=== PATIENT | male | born 1975 | race Caucasian/White ===

== ENCOUNTER 2018-05-23 09:30 | Outpatient (CLI) | payer MEDICAID, SELFPAY ==
--- NOTE | 2018-05-23 09:23 | DI.RAD_ITS ---
SYMPTOM/DIAGNOSIS: PAIN LEFT KNEE: There are severe degenerative changes of the medial femoral tibial joint as well as patellofemoral joint There is prominent spurring throughout. The lateral femoral tibial joint space is well maintained. 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
== END 2018-05-23 09:50 ==
PROVIDERS: PCP Nurse Practitioner Family; Visit Provider Physician Assistant Surgical
DX: M25.562 Pain in left knee (principal); M17.12 Unilateral primary osteoarthritis, left knee
CPT/HCPCS: 73560

== ENCOUNTER 2018-06-08 02:00 | Outpatient (CLI) | payer MEDICAID, SELFPAY ==
[2018-06-08 09:37] LABS: COMMENT (LAB VIEW ONLY) 115.21 mg/dL; Microalb ug/mg Crea 5.6 ug/mg Cr
[2018-06-08 09:39] LABS: ALT 39 U/L (12-78); AST 31 U/L (15-37); Albumin 3.6 g/dL (3.4-5.0); Alkaline Phosphatase 61 U/L (46-116); Anion Gap 11.4 mmol/L (3-11); BUN 23 mg/dL (7-18); Bilirubin, Total 0.7 mg/dL (0.2-1.0); CO2 24.6 mmol/L (21.0-32.0); CREATININE 0.94 mg/dL (0.70-1.30); Calcium 8.7 mg/dL (8.5-10.1); Chloride 105 mmol/L (98-107); Cholesterol 127 mg/dL (50-200); Glucose 109 mg/dL (70-100); HDL Cholesterol 33 mg/dL (40-60); LDL CHOLESTEROL 69 mg/dL (<100); Potassium 4.2 mmol/L (3.5-5.1); Sodium 141 mmol/L (136-145); Total Protein 6.9 g/dL (6.4-8.2); Triglyceride 129 mg/dL (30-150)
== END 2018-06-08 02:20 ==
PROVIDERS: PCP Nurse Practitioner Family; Visit Provider Nurse Practitioner Family
DX: E11.65 Type 2 diabetes mellitus with hyperglycemia (principal); E78.5 Hyperlipidemia, unspecified
CPT/HCPCS: 36415; 80053; 80061; 83721; 82043; 82570

== ENCOUNTER 2019-02-20 10:16 | Outpatient (CLI) | payer MEDICAID, SELFPAY ==
[2019-02-20 10:51] LABS: HCT 47.8 % (40.0-50.0); HGB 15.3 g/dL (13.5-17.5); Mean Corpuscular Hemoglobin 28.4 pg (27.0-33.0); Mean Corpuscular Volume 88.8 fL (80-95); Mean Platelet Volume 8.8 fL (8.0-11.0); Platelet Count 292 x1000/uL (130-400); RBC 5.38 m/cumm (4.50-6.00); RBC Distribution Width 14.8 % (11.8-14.1); White Blood Cell Count 6.75 k/cumm (4.4-10.8)
[2019-02-20 11:26] LABS: Iron 69 ug/dL (50-175)
[2019-02-20 12:02] LABS: ALT 43 U/L (16-63); AST 33 U/L (15-37); Albumin 4.3 g/dL (3.4-5.0); Alkaline Phosphatase 59 U/L (46-116); Bilirubin, Total 1.2 mg/dL (0.2-1.0); CREATININE 0.96 mg/dL (0.70-1.30); Ferritin 204 ng/mL (8-388); TSH 1.99 uIU/mL (0.36-3.74); Total Protein 7.3 g/dL (6.4-8.2); Vitamin B12 514 pg/mL (193-986)
[2019-02-20 12:13] LABS: Bilirubin, Direct 0.25 mg/dL (0.00-0.20)
[2019-02-22 06:18] LABS: Vitamin D 25 Total 21.8 ng/ml (30-100)
== END 2019-02-20 10:36 ==
PROVIDERS: PCP Nurse Practitioner Family; Visit Provider Physician Assistant
DX: E66.01 Morbid (severe) obesity due to excess calories (principal); Z68.43 Body mass index [BMI] 50.0-59.9, adult
CPT/HCPCS: 36415; 80076; 82306; 85027; 82565; 82607; 82728; 83540; 84443

== ENCOUNTER 2019-04-30 12:56 | Outpatient (CLI) | payer MEDICAID, SELFPAY ==
--- NOTE | 2019-04-30 10:58 | DI.RAD_ITS ---
EXAM: XR FOOT LT COMPLETE INDICATION: L foot pain x3 weeks, ball of foot and 1st 2 toes, M79.672. COMPARISON: RIGHT HEEL ([facility]) from 09/07/2012 TECHNIQUE: 2D digital imaging was performed. FINDINGS: No fracture or dislocation is seen. There is a prominent navicular. There are mild degenerative en nges. No bony erosions are seen. IMPRESSION: No acute abnormality.
== END 2019-04-30 13:16 ==
PROVIDERS: PCP Nurse Practitioner Family; Visit Provider Nurse Practitioner
DX: M79.672 Pain in left foot (principal); M19.072 Primary osteoarthritis, left ankle and foot; M79.675 Pain in left toe(s)
CPT/HCPCS: 73630

== ENCOUNTER 2019-11-02 14:42 | Outpatient (REF) | payer MEDICAID, SELFPAY ==
[2019-11-02 20:24] LABS: COMMENT (LAB VIEW ONLY) 198.08 mg/dL; Microalb ug/mg Crea 4.9 ug/mg Cr
== END 2019-11-02 15:02 ==
LOC: LBO 14:42
PROVIDERS: PCP Nurse Practitioner Family; Visit Provider Nurse Practitioner Family
DX: E11.9 Type 2 diabetes mellitus without complications (principal)
CPT/HCPCS: 82043; 82570

== ENCOUNTER 2019-11-20 16:56 | Emergency (ER) | payer MEDICAID, SELFPAY ==
[2019-11-20 17:00] VITALS: BP 124/62; PULSE 76; RESP 18; TEMP 36.9; O2SAT 97
--- NOTE | 2019-11-20 17:00 | DI.RAD_ITS ---
EXAM: XR TOE LT GREAT CLINICAL HISTORY: crush injury/ R/O fracture TECHNIQUE: 2D digital imaging was performed. COMPARISON: No exams were available for comparison FINDINGS: Gauze is seen overlying the great toe. There is a fracture of the tuft which shows mild displacement . There is a tiny bony fragment which represents a small spur from the medial aspect of the distal p halanx which may also be fractured. IMPRESSION: Tuft fracture. Question of a of fracture of the spur of the base of the distal phalanx.
--- NOTE | 2019-11-20 17:13 | W.ED.GENAD ---
Discharge Plan Disposition Patient Disposition: HOME Condition: Stable Discharge Details Chief Complaint: Orthopedic Clinical Impression: Open wound of toe with avulsion of toenail, Open fracture of toe of left foot Primary Care Provider: Florina Ivy ED Provider: Zehra Coats Home Meds and New Rx's Prescriptions: New cephalexin 500 mg tablet 500 mg PO BID 10 Days Qty: 20 RF: 0 No Action (DME) blood-glucose meter 1 EACH misc 1 ea Miscellaneous DAILY Qty: 1 RF: 0 (DME) Blood Glucose Test Strip 1 ea Miscellaneous DAILY Qty: 100 RF: 3 (DME) lancets 28 gauge misc 1 ea Miscellaneous DAILY Qty: 100 RF: 3 aspirin [Aspir-81] 81 mg tablet,delayed release (DR/EC) 81 mg PO DAILY Qty: 90 RF: 3 diclofenac sodium [Voltaren] 1 % gel 2 - 4 gm TP QID PRN (Reason: pain) Qty: 100 RF: 6 acetaminophen [Mapap Extra Strength] 500 MG tablet 1,000 mg PO PRN PRNRF: 0 Discharge Instructions Instructions: Laceration (ED), Toe Fracture (ED) Additional Instructions: Keep podiatry appointment tomorrow as previously scheduled. Keep wound clean and dry. Rest, ice, compression, elevation. In 12 to 24 hours you may wash under running soap and water in the shower. No soaking, no swimming. Wear postop shoe to prevent further injury. Follow near east archeology professor instructions on further care and suture removal. Otherwise, sutures do need to be removed in 7 to 10 days. Return sooner for any signs of infection including increased redness, red streaks up your foot, drainage, increased pain, swelling. You may still lose the nail. At this time the nail was left intact to decrease chance of infection and protect the nailbed. Take disc to near east archeology professor appointment. Take antibiotics as directed. Referrals: Florina Ivy WARP DYEING TENDER [Primary Care Provider] - Medical Decision Making 24-year-old male presents to the ER with left great toe crush injury. Patient reports dropping a 14 pound roller from approximately 4 feet onto his left great toe approximately 1 hour ago. He was wearing sneakers at the time. He does have ecchymosis, increased swelling, a laceration approximately 2 cm to the nailbed base which there is a slow venous ooze from. He rates his pain a 6 out of 10 on a scale. He also reports a little bit of numbness and paresthesias to the distal tip of his toe. Patient has full range of motion noted to his ankle no other injuries he did not take any medications prior to arrival. He has a past medical history of type 2 diabetes, obesity, social anxiety, hyperlipidemia. On another note, patient also is concerned concern for possible poison oak or poison kirk rash to his left anterior cornell, anterior chest and abdomen which he reports began approximately 1 week ago. He has been applying apple cider vinegar, taking Claritin, calamine lotion which has helped somewhat. 1721: X-rays obtained to rule out fracture, hydrocortisone cream applied by senior staff psychologist to rash. Imaging protocol: XR Left toes. Views: Minimum 2 views. COMPARISON: CR XR FOOT LT COMPLETE 04/30/2019 10:58 FINDINGS: Bones/joints: Acute avulsion fracture, 1st distal phalangeal tuft, maximum of 1 mm distal distraction. No dislocation. 1 x 2 mm calcific fragment adjacent to the medial 1st distal phalangeal metaphysis. On a previous study this appeared contiguous with the phalanx and now appears probably slightly distracted. Soft tissues: Digital soft tissue swelling. IMPRESSION: 1. Acute avulsion fracture, 1st distal phalangeal tuft, minimal distal distraction. 2. 1 x 2 mm calcific fragment adjacent to the medial 1st distal phalangeal metaphysis as described, change in morphology, an additional small avulsion fracture is suspected. This however could be acute, subacute or chronic since the April 2019 study. Thank you for allowing us to participate in the care of your patient. Dictated and Authenticated by: Shivani Pisano MD No near east archeology professor construction pit worker at this time. Patient does have a appointment tomorrow at 430 at [facility] with podiatry Darion Christianson. Encouraged to keep appointment. Please see procedure note as noted above for digital block and laceration repair. Did tack down toenail to the nailbed to prevent vent increased infection and due to the open fracture. Iodoform dressing applied post procedure and bulky dressing applied with Coban. Patient was placed in a postop shoe to prevent re-injuring prior to discharge. Patient has a podiatry appointment tomorrow disc given of x-rays to take with him to that appointment discuss strict return instructions, verbalized understanding. Patient was given 1 g of Ancef in department prior to discharge and a tetanus booster. Patient was placed on cephalexin 500 mg twice a day x10 days to treat empirically for infection. HPI General Mode of arrival: ambulatory. Date/Time Provider Initiated Documentation: 11/20/19 17:04. Limitations to Documentation: no limitations and physical limitation (Hard of Hearing). Information obtained by: patient. HPI Narrative: 24-year-old male presents to the ER with left great toe crush injury. Patient reports dropping a 14 pound roller from approximately 4 feet onto his left great toe approximately 1 hour ago. He was wearing sneakers at the time. He does have ecchymosis, increased swelling, a laceration approximately 2 cm to the nailbed base which there is a slow venous ooze from. He rates his pain a 6 out of 10 on a scale. He also reports a little bit of numbness and paresthesias to the distal tip of his toe. Patient has full range of motion noted to his ankle no other injuries he did not take any medications prior to arrival. He has a past medical history of type 2 diabetes, obesity, social anxiety, hyperlipidemia. On another note, patient also is concerned concern for possible poison oak or poison kirk rash to his left anterior cornell, anterior chest and abdomen which he reports began approximately 1 week ago. He has been applying apple cider vinegar, taking Claritin, calamine lotion which has helped somewhat. Related Data Home Medications Medication Instructions Recorded Confirmed acetaminophen [Mapap Extra 1,000 mg PO PRN PRN 06/17/15 11/20/19 Strength] blood-glucose meter #1 unit 04/11/17 11/02/19 blood sugar diagnostic #100 strip 02/12/19 11/02/19 lancets 28 gauge #100 ea 02/12/19 11/02/19 aspirin 81 mg tablet,delayed 81 mg PO DAILY #90 tab-cap 05/22/19 11/20/19 release diclofenac sodium 1 % topical gel 2 - 4 gm TP QID PRN #100 gm 06/07/19 11/20/19 cephalexin 500 mg PO BID 10 Days #20 tab 11/20/19 Previous Rx's Medication Instructions Recorded blood-glucose meter #1 unit 04/11/17 blood sugar diagnostic #100 strip 02/12/19 lancets 28 gauge #100 ea 02/12/19 aspirin 81 mg tablet,delayed 81 mg PO DAILY #90 tab-cap 05/22/19 release diclofenac sodium 1 % topical gel 2 - 4 gm TP QID PRN #100 gm 06/07/19 cephalexin 500 mg PO BID 10 Days #20 tab 11/20/19 Allergies Allergy/AdvReac Type Severity Reaction Status Date / Time No Known Allergies Allergy Verified 11/20/19 17:19 General Stated Complaint: Orthopedic CELINE: 4 Review of Systems Narrative: Constitutional: Negative for weight loss, alert and oriented, well groomed, normal body habitus, appears comfortable. Chest: Denies chest pain, palpitations, irregular rhythm, hypertension. Respiratory: Denies Shortness of breath, cough, hemoptysis. GI: Denies abdominal pain, nausea, vomiting, diarrhea, constipation. : Denies dysuria, hematuria, flank pain, rectal bleeding. Musculoskeletal: Complaining of left great toe pain and laceration Skin: Has a red vesicular rash noted to his left anterior cornell and anterior chest and abdominal wall consistent with poison oak or poison kirk. No surrounding erythema, warmth or induration or any signs of infection. [facility] Medical History Bigeminal rhythm (Inactive 01/06/16) seen on f/u Sleep Study, ? ventricular Binge eating disorder (Chronic) 04/2018 Psychiatry consult (Dr. Cage) Depression (Chronic 12/11/15) Declines medication Hearing loss (Chronic) History of fracture of nose (Resolved) Hyperlipidemia (Chronic 04/11/17) 03/2017 labwork: 10-year ASCVD risk = ~5.9%, however, DM dx, so started on moderate intensity statin therapy IFG (impaired fasting glucose) (Resolved) Obesity (Chronic) Other chronic pain (Chronic) Primarily L knee, though has diffuse aches & pains which correlate with wt gain Primary localized osteoarthritis of knee (Chronic) Severe obstructive sleep apnea (Chronic 11/03/15) Sleep study 10/10/15 [facility]; BiPAP Social anxiety disorder (Chronic) 04/2018 Psychiatry consult (Dr. Cage) Tobacco use disorder (Resolved) Type 2 diabetes mellitus (Chronic) Vitamin D deficiency (Chronic 10/23/15) Surgical History broken nose childhood left meniscal repair (Resolved ~2006) S/P biopsy (Inactive) 01/08/19 gastric bx of stomach for H.Pylori - negative ([facility]) S/P laparoscopic sleeve gastrectomy (Acute 06/12/19) [facility] Emmy Family History Grandfather , [place] at age 75. Essential hypertension Hyperlipidemia Myocardial infarction Grandmother , ??DM complications at age 75. 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 Appears stated age. Normal body habitus. Head: Normocephalic, no trauma. Eyes: Pupils PERRLA, Red reflex noted, EOM's intact. Eyelids symmetrical without lesions, discharge, or swelling. ENT: Bilateral TM's WNL, External ear normal to inspection, no mastoid TTP, swelling, or erythema, Nasal turbinates WNL, no nasal discharge. Normal dentition, Posterior pharynx WNL, no exudate. Chest: RRR, Normal S1, S2, distal pulses intact. Resp: Lungs clear to auscultation bilaterally, no wheezes, rales, or rhonchi. Musculoskeletal: limping gait, 5/5 strength to all four extremities. Left great toe ecchymosis, swelling, there is a approximately 2 cm linear horizontal laceration noted to the base of his nailbed with small venous oozing. See additional documentation below Skin: Red slightly raised vesicular rash consistent with poison kirk or poison oak noted to his left anterior cornell, anterior chest abdominal wall, he does report some pruritus has been treating at home x1 to 2 weeks. No surrounding erythema or signs of infection. Neurologic: Cranial nerves II-XII intact. Alert and oriented x 3. DTR's intact. Hematologic/Lymphatic: No ecchymosis, no lymphadenopathy. Extrem Left lower extremity: foot Details: laceration (Base of great toe nailbed) and ecchymosis (Left great toe) Ankle/foot/toe images: 1. 2 cm laceration through the cuticle at the base of the nailbed, toenail was pushed back into the nailbed 2 loose simple interrupted sutures placed. Surrounding ecchymosis and swelling. Course Vital Signs Vital signs: Vital Signs Temperature 36.9 C 11/20/19 17:00 Pulse 76 11/20/19 17:00 Respiratory Rate 18 11/20/19 17:00 Blood Pressure 124/62 11/20/19 17:00 Pulse Oximetry 97 11/20/19 17:00 Temperature 36.9 C 11/20/19 17:00 Temperature Source Temporal Artery Scan 11/20/19 17:00 Pulse 76 11/20/19 17:00 Respiratory Rate 18 11/20/19 17:00 Respiratory Effort Non-Labored 11/20/19 17:03 Blood Pressure 124/62 11/20/19 17:00 Blood Pressure Position Supine 11/20/19 17:00 Pulse Oximetry 97 11/20/19 17:00 Oxygen Delivery Method Room Air 11/20/19 17:00 Oxygen Flow Rate 0 11/20/19 17:00 Pain Level 6 11/20/19 17:00 Procedures Laceration Laceration 1: Site: lower extremity (Left great toe base of the nailbed) Side (If applicable): left Size (cm): 2 Description: linear Depth: simple, single layer Local Anesthetic: Lidocaine 1% and Bupivicaine 0.25% Amount of anesthesia used (mL): 5 Pre-repair: irrigated extensively Skin layer closed with: nylon Size (cm): 3-0 Number of sutures: 2 Technique: simple, interrupted Nerve Block Nerve Block 1: Time out performed: No Local Anesthetic: Lidocaine 1% and Bupivicaine 0.25% Amount of anesthesia used (mL): 5 Side: left Nerve Blocks: digital (Left 3 sided block base of left great toe) Procedure Successful: Yes Patient Tolerated Procedure: well Complications: inadequate anesthesia (Inadequate anesthesia noted to the lateral nailbed)
[2019-11-20] MEDS: Hydrocortisone 1% CR 30 GM TUBE TP (17:15)
[2019-11-20] MEDS: Ibuprofen 600 MG TAB PO (17:15)
--- NOTE | 2019-11-20 17:48 | DI.VRAD_ITS ---
PROCEDURE INFORMATION: Exam: XR Left Toe(s) Exam date and time: 11/20/2019 17:26 Age: 44 years old Clinical indication: Injury or trauma; Injury history: Crushing injury; Initial encounter; Blunt trauma; Toes; Left; Injury date: 11/20/2019 TECHNIQUE: Imaging protocol: XR Left toes. Views: Minimum 2 views. COMPARISON: CR XR FOOT LT COMPLETE 04/30/2019 10:58 FINDINGS: Bones/joints: Acute avulsion fracture, 1st distal phalangeal tuft, maximum of 1 mm distal distraction. No dislocation. 1 x 2 mm calcific fragment adjacent to the medial 1st distal phalangeal metaphysis. On a previous study this appeared contiguous with the phalanx and now appears probably slightly distracted. Soft tissues: Digital soft tissue swelling. IMPRESSION: 1. Acute avulsion fracture, 1st distal phalangeal tuft, minimal distal distraction. 2. 1 x 2 mm calcific fragment adjacent to the medial 1st distal phalangeal metaphysis as described, change in morphology, an additional small avulsion fracture is suspected. This however could be acute, subacute or chronic since the April 2019 study. Dictated and Authenticated by: Shivani Pisano MD. Ordering:SAKSHI Shahid MD
[2019-11-20] MEDS: Bupivacaine 0.5% Pres-Free 30 ML VIAL (18:45)
[2019-11-20] MEDS: Lidocaine 1% Multi-Dose 50 ML VIAL (18:46)
[2019-11-20] MEDS: ceFAZolin 1,000 MG VIAL 1000 MG IM (19:00)
== END 2019-11-20 19:55 | disposition home or self-care (01) ==
PROVIDERS: Emergency Provider Registered Nurse Emergency; PCP Nurse Practitioner Family
DX: S97.112A Crushing injury of left great toe, initial encounter (principal); S92.422B Displaced fracture of distal phalanx of left great toe, initial encounter for open fracture; S91.212A Laceration without foreign body of left great toe with damage to nail, initial encounter; W20.8XXA Other cause of strike by thrown, projected or falling object, initial encounter; L23.7 Allergic contact dermatitis due to plants, except food; E11.9 Type 2 diabetes mellitus without complications
CPT/HCPCS: 12001; 28490; 90471; 96372; 99284; 73660; 99283; J0690

== ENCOUNTER 2019-12-02 09:14 | Emergency (ER) | payer MEDICAID, SELFPAY ==
--- NOTE | 2019-12-02 09:18 | ED.GENADUL_ITS ---
Discharge Plan Disposition Patient Disposition: HOME Condition: Stable Discharge Details Chief Complaint: SutureRem Clinical Impression: Visit for suture removal Primary Care Provider: Florina Ivy ED Provider: Ifeoma Garcia Home Meds and New Rx's Prescriptions: Continued (DME) blood-glucose meter 1 EACH misc 1 ea Miscellaneous DAILY Qty: 1 RF: 0 (DME) Blood Glucose Test Strip 1 ea Miscellaneous DAILY Qty: 100 RF: 3 (DME) lancets 28 gauge misc 1 ea Miscellaneous DAILY Qty: 100 RF: 3 aspirin [Aspir-81] 81 mg tablet,delayed release (DR/EC) 81 mg PO DAILY Qty: 90 RF: 3 diclofenac sodium [Voltaren] 1 % gel 2 - 4 gm TP QID PRN (Reason: pain) Qty: 100 RF: 6 acetaminophen [Mapap Extra Strength] 500 MG tablet 1,000 mg PO PRN PRNRF: 0 omeprazole 40 mg capsule,delayed release(DR/EC) 40 mg PO DAILY RF: 0 Certavite-Antioxidant 18-400 mg-mcg tablet 1 tab PO DAILY RF: 0 Discharge Instructions Instructions: Stitches Removal (ED) Additional Instructions: Keep wound clean and dry. Cover wound with bandage if risk of contamination. Otherwise you can keep the wound open to air if resting at home to allow edges to dry and heal. Follow up with your primary care doctor in 1 week as needed. Return to the emergency department with any worsening or new concerning symptoms. Discharge Data Discharge Physician: Ifeoma Garcia Medical Decision Making 44-year-old male 12 days status post left toe open fracture and nail avulsion with suture placement with 2 Prolene sutures presents for suture removal. 2 Prolene sutures removed at bedside without difficulty. Nail appears intact to skin and healing well. There are no signs of cellulitis. Wound was dressed. Patient was instructed on proper wound care. Usual and customary return precautions given prior to discharge. Medical Records Medical records reviewed: Yes I reviewed the patient's medical records. HPI General Mode of arrival: ambulatory . Date/Time Provider Initiated Documentation: 12/02/19 09:16 . Limitations to Documentation: no limitations . Information obtained by: patient . HPI Narrative: Patient is a 44-year-old male who is 12 days status post left toe fracture and nail avulsion with suture placement presents for suture removal. Patient had 2 Prolene sutures placed which is still in place. Patient denies any fever, redness, pain or swelling. He states he finished the antibiotics. Related Data Home Medications Medication Instructions Recorded Confirmed acetaminophen [Mapap Extra 1,000 mg PO PRN PRN 06/17/15 12/02/19 Strength] blood-glucose meter #1 unit 04/11/17 11/02/19 blood sugar diagnostic #100 strip 02/12/19 11/02/19 lancets 28 gauge #100 ea 02/12/19 11/02/19 aspirin 81 mg tablet,delayed 81 mg PO DAILY #90 tab-cap 05/22/19 12/02/19 release diclofenac sodium 1 % topical gel 2 - 4 gm TP QID PRN #100 gm 06/07/19 12/02/19 Certavite-Antioxidant 1 tab PO DAILY 12/02/19 12/02/19 omeprazole 40 mg PO DAILY 12/02/19 12/02/19 Previous Rx's Medication Instructions Recorded blood-glucose meter #1 unit 04/11/17 blood sugar diagnostic #100 strip 02/12/19 lancets 28 gauge #100 ea 02/12/19 aspirin 81 mg tablet,delayed 81 mg PO DAILY #90 tab-cap 05/22/19 release diclofenac sodium 1 % topical gel 2 - 4 gm TP QID PRN #100 gm 06/07/19 Allergies Allergy/AdvReac Type Severity Reaction Status Date / Time No Known Allergies Allergy Verified 12/02/19 09:23 General CELINE: 4 Review of Systems All systems reviewed & are unremarkable except as noted in HPI and below Constitutional Constitutional: Reports as per HPI, Denies chills and Denies fever(s) Eyes Eyes: Denies blurry vision ENT Ears, Nose, Mouth, and Throat: Denies dizziness, Denies sore throat and Denies throat swelling Cardiovascular Cardiovascular: Denies chest pain and Denies dyspnea Respiratory Respiratory: Denies cough and Denies dyspnea Gastrointestinal Gastrointestinal: Denies abdominal pain, Denies diarrhea and Denies vomiting Genitourinary Genitourinary: Denies hematuria and Denies dysuria Musculoskeletal Musculoskeletal: Denies back pain and Denies numbness Integumentary/Breasts Skin/Breast: Denies lesions and Denies rash Neurologic Neurologic: Denies dizziness, Denies localized weakness and Denies numbness Allergic/Immunologic Allergic/Immunologic: Denies throat swelling [facility] Medical History (Updated 12/02/19 @ 09:41 by Ifeoma Garcia DO) Bigeminal rhythm (Inactive 01/06/16) seen on f/u Sleep Study, ? ventricular Binge eating disorder (Chronic) 04/2018 Psychiatry consult (Dr. Cage) Depression (Chronic 12/11/15) Declines medication Hearing loss (Chronic) History of fracture of nose (Resolved) Hyperlipidemia (Chronic 04/11/17) 03/2017 labwork: 10-year ASCVD risk = ~5.9%, however, DM dx, so started on moderate intensity statin therapy IFG (impaired fasting glucose) (Resolved) Obesity (Chronic) Other chronic pain (Chronic) Primarily L knee, though has diffuse aches & pains which correlate with wt gain Primary localized osteoarthritis of knee (Chronic) Severe obstructive sleep apnea (Chronic 11/03/15) Sleep study 10/10/15 [facility]; BiPAP Social anxiety disorder (Chronic) 04/2018 Psychiatry consult (Dr. Cage) Tobacco use disorder (Resolved) Type 2 diabetes mellitus (Chronic) Vitamin D deficiency (Chronic 10/23/15) Surgical History broken nose childhood left meniscal repair (Resolved ~2006) S/P biopsy (Inactive) 01/08/19 gastric bx of stomach for H.Pylori - negative ([facility]) S/P laparoscopic sleeve gastrectomy (Acute 06/12/19) [facility] Conniejasmin Family History Grandfather , [place] at age 75. Essential hypertension Hyperlipidemia Myocardial infarction Grandmother , ??DM complications at age 75. 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 Sexually active: No Current gender identity: male What type of physical activity do you participate in: walking Duration: 45-60 minutes/day Frequency: daily Seatbelt use: sometimes Helmet use: Yes Water heater temp set <120 deg: Yes Working smoke detector in home: Yes Fire extinguisher in home: Yes Carbon monox detector in home: Yes Firearms in home: Yes Firearms unloaded and locked: Yes Do you feel safe at home: Yes Do you feel safe in your relationship?: Yes Exam Const General: cooperative, healthy appearing and no acute distress HENMT Head: normal to inspection Mouth: oral mucosae normal Eyes General: appearance normal, both eyes and all related structures Neck Neck: normal visual inspection Resp Effort & Inspection: normal respiratory effort and able to speak in complete sentences Cardio Rate: regular rate Skin General skin exam: no rashes or lesions noted Neuro General: patient alert, patient awake and patient oriented x3 Motor: muscle tone normal throughout Extrem Ankle/foot/toe images: 1. Crusted erosion noted at skin at proximal nail bed. There is no surrounding erythema, edema. 2-0 Prolene sutures noted in place. Nail appears intact and healing well. Psych Appearance: grossly normal Affect: normal affect
[2019-12-02 09:20] VITALS: BP 107/65; PULSE 70; RESP 16; TEMP 36.8; O2SAT 99
== END 2019-12-02 09:48 | disposition home or self-care (01) ==
PROVIDERS: Emergency Provider Physician Assistant; PCP Nurse Practitioner Family
DX: S91.212D Laceration without foreign body of left great toe with damage to nail, subsequent encounter (principal); W20.8XXD Other cause of strike by thrown, projected or falling object, subsequent encounter; Z48.02 Encounter for removal of sutures

== ENCOUNTER 2020-01-10 16:29 | Emergency (ER) | payer MEDICAID, SELFPAY ==
[2020-01-10 16:41] VITALS: BP 114/71; PULSE 71; RESP 18; TEMP 37.2; O2SAT 97
--- NOTE | 2020-01-10 16:45 | ED.GENADUL_ITS ---
Discharge Plan Disposition Patient Disposition: HOME Condition: Stable Discharge Details Clinical Impression: Abrasion, corneal, Eye foreign body Primary Care Provider: Florina Ivy ED Provider: Chilo Das Home Meds and New Rx's Prescriptions: New erythromycin 5 mg/gram (0.5 %) ointment 0.5 inch ophthalmic (eye) QID 7 Days Qty: 3.5 RF: 0 Continued (DME) blood-glucose meter 1 EACH misc 1 ea Miscellaneous DAILY Qty: 1 RF: 0 (DME) Blood Glucose Test Strip 1 ea Miscellaneous DAILY Qty: 100 RF: 3 (DME) lancets 28 gauge misc 1 ea Miscellaneous DAILY Qty: 100 RF: 3 aspirin [Aspir-81] 81 mg tablet,delayed release (DR/EC) 81 mg PO DAILY Qty: 90 RF: 3 diclofenac sodium [Voltaren] 1 % gel 2 - 4 gm TP QID PRN (Reason: pain) Qty: 100 RF: 6 acetaminophen [Mapap Extra Strength] 500 MG tablet 1,000 mg PO PRN PRNRF: 0 omeprazole 40 mg capsule,delayed release(DR/EC) 40 mg PO DAILY RF: 0 Certavite-Antioxidant 18-400 mg-mcg tablet 1 tab PO DAILY RF: 0 Discharge Instructions Instructions: Corneal Abrasion (ED), Eye Foreign Body (ED) Additional Instructions: Erythromycin eye ointment as directed. You may use [id number] lubricating drops but do not use them within 1 hour of the antibiotic ointment. Avoid rubbing your eye. Please watch for new or worsening symptoms and return to the ER for any concerns. I do recommend that you reach out to your data communications analyst tomorrow for prompt outpatient reevaluation. There is always a chance of a small retained foreign body in the eye. Medical Decision Making 44-year-old gentleman presents for foreign body sensation in the left eye. Visual acuity obtained, 20/25 left eye 20/30 right eye. Evaluation reveals a corneal abrasion with a central foreign body. Eyelids were flipped. I applied tetracaine, patient became pain-free. I was able to easily remove the foreign body using a cotton swab. I reevaluated the left eye with fluorescein once again, no foreign body noted. We did discuss the potential for retained foreign body. Patient does have a local data communications analyst and plans to contact them tomorrow for prompt outpatient reevaluation. I will provide a prescription for Ilotycin and he was encouraged to return to the ER for new or worsening symptoms. Medical Records Medical records reviewed: Yes I reviewed the patient's medical records. HPI General Mode of arrival: ambulatory . Date/Time Provider Initiated Documentation: 01/10/20 16:29 . Limitations to Documentation: no limitations . Information obtained by: patient . HPI Narrative: This is a 44-year-old gentleman with history of diabetes, hyperlipidemia, presenting to the ER for foreign body sensation in the left eye. He denies wearing contacts or glasses. He was working on his vehicle last night, wearing safety goggles, but believes that something got behind the glasses into his eye. He attempted to flush out of his eye last night but awoke this morning with increased irritation and mild drainage. He denies any blurry or double vision. Patient reports that his eye is irritated, mild in nature. Denies any projectile trauma. Related Data Home Medications Medication Instructions Recorded Confirmed acetaminophen [Mapap Extra 1,000 mg PO PRN PRN 06/17/15 01/10/20 Strength] blood-glucose meter #1 unit 04/11/17 11/02/19 blood sugar diagnostic #100 strip 02/12/19 11/02/19 lancets 28 gauge #100 ea 02/12/19 11/02/19 aspirin 81 mg tablet,delayed 81 mg PO DAILY #90 tab-cap 05/22/19 01/10/20 release diclofenac sodium 1 % topical gel 2 - 4 gm TP QID PRN #100 gm 06/07/19 01/10/20 Certavite-Antioxidant 1 tab PO DAILY 12/02/19 01/10/20 omeprazole 40 mg PO DAILY 12/02/19 01/10/20 erythromycin 0.5 inch OPHTHALMIC (EYE) QID 7 01/10/20 Days #3.5 g Previous Rx's Medication Instructions Recorded blood-glucose meter #1 unit 04/11/17 blood sugar diagnostic #100 strip 02/12/19 lancets 28 gauge #100 ea 02/12/19 aspirin 81 mg tablet,delayed 81 mg PO DAILY #90 tab-cap 05/22/19 release diclofenac sodium 1 % topical gel 2 - 4 gm TP QID PRN #100 gm 06/07/19 erythromycin 0.5 inch OPHTHALMIC (EYE) QID 7 01/10/20 Days #3.5 g Allergies Allergy/AdvReac Type Severity Reaction Status Date / Time No Known Allergies Allergy Verified 01/10/20 16:44 General Stated Complaint: EyeProblem CELINE: 4 Review of Systems Constitutional Constitutional: Denies fever(s) and Denies headache(s) Eyes Eyes: Denies blurry vision, Denies change in vision, Reports eye discharge, Reports irritation and Reports eye pain ENT Ears, Nose, Mouth, and Throat: Denies headache(s) Integumentary/Breasts Skin/Breast: Denies erythema Neurologic Neurologic: Denies headache(s) [facility] Medical History Bigeminal rhythm (01/06/16) seen on f/u Sleep Study, ? ventricular Binge eating disorder 04/2018 Psychiatry consult (Dr. Cage) Depression (12/11/15) Declines medication Hearing loss History of fracture of nose Hyperlipidemia (04/11/17) 03/2017 labwork: 10-year ASCVD risk = ~5.9%, however, DM dx, so started on moderate intensity statin therapy IFG (impaired fasting glucose) Obesity Other chronic pain Primarily L knee, though has diffuse aches & pains which correlate with wt gain Primary localized osteoarthritis of knee Severe obstructive sleep apnea (11/03/15) Sleep study 10/10/15 [facility]; BiPAP Social anxiety disorder 04/2018 Psychiatry consult (Dr. Cage) Tobacco use disorder Type 2 diabetes mellitus Vitamin D deficiency (10/23/15) Surgical History broken nose childhood left meniscal repair (~2006) S/P biopsy 01/08/19 gastric bx of stomach for H.Pylori - negative ([facility]) S/P [facility]/19[facility] Family History Grandfather , [place] at age 75. Essential hypertension Hyperlipidemia Myocardial infarction Grandmother , ??DM complications at age 75. 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 Sexually active: No Current gender identity: male What type of physical activity do you participate in: walking Duration: 45-60 minutes/day Frequency: daily Seatbelt use: sometimes Helmet use: Yes Water heater temp set <120 deg: Yes Working smoke detector in home: Yes Fire extinguisher in home: Yes Carbon monox detector in home: Yes Firearms in home: Yes Firearms unloaded and locked: Yes Do you feel safe at home: Yes Do you feel safe in your relationship?: Yes Exam Const General: cooperative, healthy appearing, comfortable and no acute distress Orientation: alert and awake HENMT Head: normal to inspection, normocephalic and atraumatic Face and sinus: normal facial exam Mouth: moist mucous membranes Eyes Alignment and Position: alignment normal Periorbital: periorbital findings normal Eyelids: eyelids normal and other (Left eyelid was flipped for evaluation) Conjunctivae: conjunctival abnormality left conjunctival injection (Minimal) diffuse Sclera: sclerae normal Cornea: corneas abnormal on the left abrasion and foreign body and fluorescein used Pupils: PERRL EOM: EOM intact bilaterally Direct ophthalmoscopy: normal light reflex Eyes/upper lids images: 1. Abrasion 2. Central black speck foreign body, no rust ring Neck Neck: normal visual inspection, full ROM, trachea midline and supple Resp Effort & Inspection: normal respiratory effort and able to speak in complete sentences Cardio Rate: regular rate Rhythm: regular rhythm Skin General skin exam: no rashes or lesions noted Neuro General: patient alert, patient awake, moves all extremities and no focal motor deficits Sensory Exam: no sensory deficits noted Psych Appearance: grossly normal Mental Status: mental status grossly normal Course Vital Signs Vital signs: Vital Signs Temperature 37.2 C 01/10/20 16:41 Pulse 71 01/10/20 16:41 Respiratory Rate 18 01/10/20 16:41 Blood Pressure 114/71 01/10/20 16:41 Pulse Oximetry 97 01/10/20 16:41 Temperature 37.2 C 01/10/20 16:41 Temperature Source Tympanic 01/10/20 16:41 Pulse 71 01/10/20 16:41 Respiratory Rate 18 09/17/20 16:41 Blood Pressure 114/71 01/10/20 16:41 Blood Pressure Position Sitting 01/10/20 16:41 Pulse Oximetry 97 01/10/20 16:41 Oxygen Delivery Method Room Air 01/10/20 16:41 Oxygen Flow Rate 0 01/10/20 16:41 Pain Level 8 01/10/20 16:41
[2020-01-10] MEDS: Tetracaine 0.5% 4 ML BTL (17:07)
[2020-01-10] MEDS: Fluorescein STRIPS 100/BOX 1 MG (17:07)
[2020-01-10 17:41] VITALS: BP 114/71; PULSE 65; RESP 16; TEMP 37; O2SAT 98
[2020-01-10] MEDS: Balanced Salt Solution 15 ML BTL (17:43)
== END 2020-01-10 17:41 | disposition home or self-care (01) ==
PROVIDERS: Emergency Provider Physician Assistant; PCP Nurse Practitioner Family
DX: T15.02XA Foreign body in cornea, left eye, initial encounter (principal); H57.12 Ocular pain, left eye; E11.9 Type 2 diabetes mellitus without complications
CPT/HCPCS: 65220

== ENCOUNTER → 2021-08-03 13:18 | Outpatient (CLI) | payer MEDICAID, SELFPAY ==
--- NOTE | 2021-08-03 15:07 | DI.RAD_ITS ---
Exam(s) XR CHEST 2V PA LATERAL EXAM: XR CHEST 2V PA LATERAL CLINICAL HISTORY: Cough, subjective fever and chills, upper respiratory infection, J06.9 TECHNIQUE: 2D digital imaging was performed. COMPARISON: CR CHEST 2 VIEWS PA,LAT from 08/22/2011 FINDINGS: MEDIASTINUM: Normal. HEART: Normal. PULMONARY VASCULATURE: Normal. LUNGS: Clear. PLEURAL SPACE: No pleural effusion or pneumothorax. BONE:Unremarkable for age. IMPRESSION: No acute abnormality. DATA REPOSITORY: RADIATION DOSE DELIVERED:
== END ==
PROVIDERS: PCP Nurse Practitioner Family; Visit Provider Family Medicine
DX: J06.9 Acute upper respiratory infection, unspecified (principal); R05.8 Other specified cough; R50.9 Fever, unspecified
CPT/HCPCS: 71046

== ENCOUNTER 2021-08-03 15:49 | Outpatient (REF) | payer MEDICAID, SELFPAY ==
[2021-08-05 12:00] LABS: COVID-19 RT-PCR UVMMC Result Negative (Negative)
== END 2021-08-03 15:50 | disposition home or self-care (01) ==
LOC: LBN 15:49
PROVIDERS: PCP Nurse Practitioner Family; Visit Provider Nurse Practitioner
DX: Z20.822 Contact with and (suspected) exposure to COVID-19 (principal); R50.9 Fever, unspecified
CPT/HCPCS: U0003

== ENCOUNTER → 2021-08-05 15:28 | Outpatient (CLI) | payer MEDICAID, SELFPAY ==
--- NOTE | 2021-08-05 11:55 | DI.CT_ITS ---
Exam(s) CT CHEST/ABD/PEL W EXAM: CT CHEST/ABD/PEL W CLINICAL HISTORY: FUO FEVER R50.9 PAIN R52 COUGH R05.9. TECHNIQUE: Imaging Protocol: Axial computed tomography images with coronal and sagittal reformatted images were created and reviewed CONTRAST MATERIAL: Intravenous: Omnipaque 350 Contrast volume:100 ml Oral: yes COMPARISON: CT,NM MPI REST AND STRESS 2 DAY from 04/12/2017 CR XR CHEST 2V PA LATERAL from 08/03/2021 FINDINGS: CHEST: Tracheobronchial tree: Patent where visualized. Mediastinum and Destiney: 2.6 centimeter diameter nodule anterior mediastinal fat. Small mediastinal lym ph nodes.. Pulmonary parenchyma: 3.1 centimeter peripheral low density lesion in the superior segment of the rig ht lower lobe, adjacent to the pleura. 2.4 centimeter rounded low-density mass or cyst posterior lef t lower lobe, adjacent to the pleura. Pleura: No effusion or pneumothorax. Aorta: Thoracic portion non-dilated. No visible atherosclerotic changes. Heart: Normal size. No visible coronary artery calcifications. Bones: Unremarkable for age. No lytic or blastic lesions. ABDOMEN: Liver: Elongated right lobe. Normal density. No measurable mass. Gallbladder and biliary tract: Question of small stones or sludge. No biliary dilation. Pancreas: Normal density, no abnormal calcifications or inflammatory process. Stomach and small moustapha l: Suture material near the fundus of the stomach. Small hiatal hernia. Spleen: Normal. Kidneys: Normal size, contour and axis. No radiodense stones or obstructive uropathy. No masses seen. Adrenal glands: No masses seen. Aorta: Abdominal portion non-dilated. Lymph nodes: Within normal limits. Soft tissues: Unremarkable. PELVIS: Bladder: Symmetric distention, no gross wall thickening. Bowel: No obstruction or bowel wall thickening. Peritoneal cavity: No ascites, collection or mesenteric inflammatory response. Bones: Degenerative disc changes and facet degenerative changes greatest at L4-5. No lytic or blasti c lesions. Reproductive organs: Within normal limits. IMPRESSION: Bilateral peripheral lower lobe low-density lesions which could represent necrotic masses versus necr otic infiltrates. 2.6 centimeter anterior mediastinal mass... No acute abnormality in the abdomen or pelvis. Findings called to referring provider. RADIATION DOSE DELIVERED: 1,398.03mGy.cm Total DLP DATA REPOSITORY: All CT scans at this facility are submitted to the National Radiology Data Registry (NRDR) Dose Index Registry (DIR) with the [employer] (ACR). RADIATION OPTIMIZATION: All CT scans at this facility use at least one of these dose optimization te chniques: automated exposure control; mA and/or kV adjustment per patient size (includes targeted exa ms where dose is matched to clinical indication); or iterative reconstruction.
[2021-08-05] MEDS: Breeza Beverage 473 ML BTL PO ×2 (12:56→12:57)
[2021-08-05] MEDS: Omnipaque 350 MG/ML 50 ML BTL PO (12:57)
[2021-08-05] MEDS: Omnipaque 350 MG/ML 100 ML BTL IV (13:58)
== END ==
PROVIDERS: PCP Nurse Practitioner Family; Visit Provider Nurse Practitioner
DX: R05.9 Cough, unspecified (principal); R50.9 Fever, unspecified; R52 Pain, unspecified; J45.909 Unspecified asthma, uncomplicated
CPT/HCPCS: 74177; 80053; 85652; 87040; 87389; 71260; 85025; 86038; 86140; 86431; 86480; 87086; J3490; Q9967

== ENCOUNTER 2021-09-28 13:28 | Emergency (ER) | payer MEDICAID, SELFPAY ==
[2021-09-28 13:38] VITALS: BP 121/70; PULSE 73; RESP 16; TEMP 37.2; O2SAT 98
--- NOTE | 2021-09-28 15:30 | DI.RAD_ITS ---
Exam(s) XR LUMBAR SPINE COMPLETE EXAM: XR LUMBAR SPINE COMPLETE CLINICAL HISTORY: Lumbago. TECHNIQUE: 2D digital imaging was performed. Five views. COMPARISON: No exams were available for comparison FINDINGS: Are endplate osteophytes seen from the T12-L1 through L4-5. There is narrowing of the L4-5 disc spac e. There are facet degenerative changes at L4-5 and L5-S1. There is no compression fracture, spondy lolysis, spondylolisthesis or scoliosis. IMPRESSION: Degenerative changes, greatest at L4-5 DATA REPOSITORY: RADIATION DOSE DELIVERED:
--- NOTE | 2021-09-28 15:39 | W.ED.GENAD ---
Discharge Plan Disposition Patient Disposition: STILL A PATIENT Condition: Stable Discharge Details Clinical Impression: Lumbago Primary Care Provider: Florina Ivy ED Provider: Andi Jin Home Meds and New Rx's Prescriptions: New cyclobenzaprine 10 mg tablet 10 mg PO TID PRN (Reason: muscle spasm) Qty: 10 0RF Rx Instructions: Do not operate heavy machinery while taking this medication as it may make you sleepy. Only take as needed. No Action levofloxacin 750 mg tablet 750 mg PO DAILY Qty: 10 0RF Rx Instructions: rx complete (DME) blood-glucose meter 1 EACH misc 1 ea Miscellaneous DAILY Qty: 1 0RF Rx Instructions: Dx: E11.9 to maintain HbA1c less than 7%. No insulin. Please dispense brand covered by insurance. (DME) Blood Glucose Test Strip 1 ea Miscellaneous DAILY Qty: 100 3RF Rx Instructions: Dx: E11.9 to maintain HbA1c less than 7%. No insulin. PLEASE DISPENSE BRAND COVERED BY INSURANCE (DME) lancets 28 gauge misc 1 ea Miscellaneous DAILY Qty: 100 3RF Rx Instructions: Dx: E11.9 to maintain HbA1c less than 7%. No insulin. PLEASE DISPENSE BRAND COVERED BY INSURANCE Discharge Instructions Instructions: Low Back Strain (ED) Additional Instructions: Take Flexeril as directed up to 3 times daily as needed for muscle spasm. Use the lidocaine patch 1 daily which you can get [id number]. Return to the ER for any loss of bowel or bladder control, it is if you need to pee but cannot. Follow up with primary care provider in 3-5 days. Return to ED sooner if any worsening or concerns. Increase oral fluids. Please take Tylenol or Ibuprofen with food every 4-6 hours as needed for pain and swelling. You may alternate ice and heat Referrals: Florina Ivy, LYLE [Primary Care Provider] - 1 week Medical Decision Making 46-year-old male presents to the ER with a chief complaint of right lower back pain which increased today. He reports that he has had a history of low back pain and hip problem. He has not had any recent x-rays. He denies any loss of bowel or bladder control no saddle anesthesia. He denies any problems urinating. He denies any radiation of pain into his legs. He has been taking ibuprofen at home with little to no relief. Past medical history includes depression, hyperlipidemia, obstructive sleep apnea, vitamin D deficiency, type 2 diabetes, anxiety, obesity. Surgical history includes a laparoscopic gastrectomy, left meniscal repair. L-spine x-rays ordered, lidocaine patch Flexeril to go. Do suspect this patient will be discharged home. Care is to be handed off to oncoming provider Darci Jin pending medication administration and lumbar spine x-rays. Discussed patient case in details with him. At this time patient has no red flags no loss of bowel or bladder control no saddle anesthesia. Medical Records Medical records reviewed: Yes I reviewed the patient's medical records. HPI General Mode of arrival: ambulatory. Date/Time Provider Initiated Documentation: 09/28/21 13:46. Limitations to Documentation: no limitations. Information obtained by: patient, RN notes reviewed and old records reviewed. HPI Narrative: 46-year-old male presents to the ER with a chief complaint of right lower back pain which increased today. He reports that he has had a history of low back pain and hip problem. He has not had any recent x-rays. He denies any loss of bowel or bladder control no saddle anesthesia. He denies any problems urinating. He denies any radiation of pain into his legs. He has been taking ibuprofen at home with little to no relief. Past medical history includes depression, hyperlipidemia, obstructive sleep apnea, vitamin D deficiency, type 2 diabetes, anxiety, obesity. Surgical history includes a laparoscopic gastrectomy, left meniscal repair. Related Data Home Medications Medication Instructions Recorded Confirmed blood-glucose meter #1 unit 04/11/17 11/02/19 blood sugar diagnostic (Blood #100 strips 02/12/19 11/02/19 Glucose Test strips) lancets 28 gauge #100 ea 02/12/19 11/02/19 levofloxacin 750 mg tablet 750 mg PO DAILY #10 tabs 08/05/21 08/05/21 cyclobenzaprine 10 mg tablet 10 mg PO TID PRN muscle spasm #10 09/28/21 tabs Previous Rx's Medication Instructions Recorded blood-glucose meter #1 unit 04/11/17 blood sugar diagnostic (Blood #100 strips 02/12/19 Glucose Test strips) lancets 28 gauge #100 ea 02/12/19 levofloxacin 750 mg tablet 750 mg PO DAILY #10 tabs 08/05/21 cyclobenzaprine 10 mg tablet 10 mg PO TID PRN muscle spasm #10 09/28/21 tabs Allergies Allergy/AdvReac Type Severity Reaction Status Date / Time No Known Allergies Allergy Verified 09/28/21 13:44 General Stated Complaint: Nk/Back Pain CELINE: 3 Review of Systems All systems reviewed & are unremarkable except as noted in HPI and below Musculoskeletal Musculoskeletal: Reports as per HPI, Reports back pain, Denies myalgias, Denies deformity and Reports stiffness Integumentary/Breasts Skin/Breast: Denies rash Neurologic Neurologic: Reports as per HPI, Denies radicular pain, Denies restless legs and Reports paresthesias (Burning to his right lower paraspinous area, no rash noted.) PFSH All Active Problems (Updated 09/28/21 @ 16:23 by Zehra Coats) Lumbago (Acute) Mediastinal mass (Acute) [place] [place] Multiple lung nodules on CT (Acute) 08/11/21-[facility] [place] [facility] Open fracture of toe of left foot (Acute) Obesity (Chronic) Primary localized osteoarthritis of knee (Chronic) Type 2 diabetes mellitus (Chronic) Social anxiety disorder (Chronic) 04/2018 Psychiatry consult (Dr. Cage) Binge eating disorder (Chronic) 04/2018 Psychiatry consult (Dr. 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 Essential hypertension Hyperlipidemia Myocardial infarction Grandmother , ??DM complications at age 75. 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 Appears stated age. Normal body habitus. Head: Normocephalic, no trauma. Eyes: Pupils PERRL, , EOM's intact. Eyelids symmetrical without lesions, discharge, or swelling. Chest: RRR, Normal S1, S2, distal pulses intact. Resp: Lungs clear to auscultation bilaterally, no wheezes, rales, or rhonchi. Abdomen: Soft, non-distended, Normoactive bowel sounds all 4 quads. Musculoskeletal: Stiff gait, 5/5 strength to all four extremities. Skin: No suspicious rashes or lesions. Capillary refill less than 2 sec. Neurologic: Cranial nerves II-XII intact. Alert and oriented x 3. Motor: No deficits noted. Sensory: Intact bilaterally all 4 extremities. . Course Vital Signs Vital signs: Vital Signs Temperature 37.2 C 09/28/21 13:38 Pulse 73 09/28/21 13:38 Respiratory Rate 16 09/28/21 13:38 Blood Pressure 121/70 09/28/21 13:38 Pulse Oximetry 98 06/06/22 13:38 Temperature 37.2 C 09/28/21 13:38 Temperature Source Skin 09/28/21 13:38 Pulse 73 09/28/21 13:38 Respiratory Rate 16 09/28/21 13:38 Respiratory Effort 09/28/21 14:40 Blood Pressure 121/70 09/28/21 13:38 Blood Pressure Position Sitting 09/28/21 13:38 Pulse Oximetry 98 09/28/21 13:38 Oxygen Delivery Method Room Air 09/28/21 13:38 Oxygen Flow Rate 0 09/28/21 13:38 Pain Level 10 09/28/21 13:38 Comment 09/28/21 13:38 Sign Out Sign Out Data: Sign Out Comment: Pending XR results. DC written up. Last updated by Zehra Coats at 09/28/21 16:26
[2021-09-28] MEDS: Cyclobenzaprine 10 MG TAB, 3 TABS/BTL PO (16:44)
[2021-09-28] MEDS: Lidocaine 5% Patch 1 PATCH TP (16:45)
--- NOTE | 2021-09-28 16:52 | ED.PROG_ITS ---
Date of service: 09/28/21 Time of Service: 16:15 Medical Decision Making Patient signed out to me pending x-ray imaging of the lumbar spine due to low back pain. Radiological imaging does show degenerative changes to the lumbar spine no specifically L4-L5. Patient only states some radiating into hip but denies distal extremity symptoms that would suggest severe radiculopathy. I do not feel that patient needs emergent MRI imaging but was recommended to follow- up with primary care provider for reassessment and consideration of advanced imaging if not improving. After discussion of diagnosis and plan of care patient has no further needs, questions, or concerns and states clear understanding to return to the emergency department for any worsening symptoms. Imaging Data Radiologic Study: Imaging: X-Ray Radiologist's impression: IMPRESSION: Degenerative changes, greatest at L4-5 Exam Const General: cooperative, no acute distress and not ill appearing Orientation: alert, awake and oriented x3 Resp Effort & Inspection: normal respiratory effort, able to speak in complete sentences and no respiratory distress Neuro General: patient alert, patient awake, patient oriented x3 and moves all extremities Sign Out Sign Out Data: Sign Out Comment: Pending XR results. DC written up. Last updated by Zehra Coats at 09/28/21 16:26 Discharge Plan Disposition Patient Disposition: HOME Condition: Stable Discharge Details Clinical Impression: Lumbago Primary Care Provider: Florina Ivy ED Provider: Andi Jin Home Meds and New Rx's Prescriptions: New cyclobenzaprine 10 mg tablet 10 mg PO TID PRN (Reason: muscle spasm) Qty: 10 0RF Rx Instructions: Do not operate heavy machinery while taking this medication as it may make you sleepy. Only take as needed. No Action levofloxacin 750 mg tablet 750 mg PO DAILY Qty: 10 0RF Rx Instructions: rx complete (DME) blood-glucose meter 1 EACH misc 1 ea Miscellaneous DAILY Qty: 1 0RF Rx Instructions: Dx: E11.9 to maintain HbA1c less than 7%. No insulin. Please dispense brand covered by insurance. (DME) Blood Glucose Test Strip 1 ea Miscellaneous DAILY Qty: 100 3RF Rx Instructions: Dx: E11.9 to maintain HbA1c less than 7%. No insulin. PLEASE DISPENSE BRAND COVERED BY INSURANCE (DME) lancets 28 gauge misc 1 ea Miscellaneous DAILY Qty: 100 3RF Rx Instructions: Dx: E11.9 to maintain HbA1c less than 7%. No insulin. PLEASE DISPENSE BRAND COVERED BY INSURANCE Discharge Instructions Instructions: Low Back Strain (ED) Additional Instructions: Take Flexeril as directed up to 3 times daily as needed for muscle spasm. Use the lidocaine patch 1 daily which you can get [id number]. Return to the ER for any loss of bowel or bladder control, it is if you need to pee but cannot. Follow up with primary care provider in 3-5 days. Return to ED sooner if any worsening or concerns. Increase oral fluids. Please take Tylenol or Ibuprofen with food every 4-6 hours as needed for pain and swelling. You may alternate ice and heat Stand Alone Forms: Work Release Referrals: Florina Ivy NP [Primary Care Provider] - 1 week Discharge Data Discharge Date/Time-TO BE ENTERED AT DEPARTURE: 09/28/21 15:07
== END 2021-09-28 15:07 | disposition home or self-care (01) ==
PROVIDERS: Emergency Provider Nurse Practitioner Family; PCP Nurse Practitioner Family
DX: M54.50 Low back pain, unspecified (principal); E11.9 Type 2 diabetes mellitus without complications
CPT/HCPCS: 99284; 72110; 99283

== ENCOUNTER 2022-01-14 14:13 | Emergency (ER) | payer MEDICAID, SELFPAY ==
[2022-01-14 14:26] VITALS: BP 118/67; PULSE 78; RESP 18; TEMP 36.6; O2SAT 98
--- NOTE | 2022-01-14 14:44 | ED.GENADUL_ITS ---
Discharge Plan Disposition Patient Disposition: HOME Condition: Improving Discharge Details Clinical Impression: Laceration of right thumb Primary Care Provider: Florina Ivy ED Provider: Chance Rodríguez Home Meds and New Rx's Prescriptions: Continued levofloxacin 750 mg tablet 750 mg PO DAILY Qty: 10 0RF Rx Instructions: rx complete (DME) blood-glucose meter 1 EACH misc 1 ea Miscellaneous DAILY Qty: 1 0RF Rx Instructions: Dx: E11.9 to maintain HbA1c less than 7%. No insulin. Please dispense brand covered by insurance. (DME) Blood Glucose Test Strip 1 ea Miscellaneous DAILY Qty: 100 3RF Rx Instructions: Dx: E11.9 to maintain HbA1c less than 7%. No insulin. PLEASE DISPENSE BRAND COVERED BY INSURANCE (DME) lancets 28 gauge misc 1 ea Miscellaneous DAILY Qty: 100 3RF Rx Instructions: Dx: E11.9 to maintain HbA1c less than 7%. No insulin. PLEASE DISPENSE BRAND COVERED BY INSURANCE cyclobenzaprine 10 mg tablet 10 mg PO TID PRN (Reason: muscle spasm) Qty: 10 0RF Rx Instructions: Do not operate heavy machinery while taking this medication as it may make you sleepy. Only take as needed. Discharge Instructions Instructions: Laceration (ED) Additional Instructions: Leave current dressing in place for 2 days, then may remove the bulky dressing and leave bandage in place another 2 to 4 days time. By proxy 7 days May remove bandage anticipate healing completed by approximately 10 days time. Return to the ER for any acute concern. Medical Decision Making 46-year-old healthy male suffered a shallow laceration to the volar surface of his right thumb. Repaired with Steri-Strips and bandage. No indication for suture repair. Patient's tetanus is up-to-date. He is stable and appropriate for outpatient management. HPI General Mode of arrival: ambulatory . Date/Time Provider Initiated Documentation: 01/14/22 14:29 . Limitations to Documentation: no limitations . Information obtained by: patient . History of Present Illness 46 year old M presents to the emergency department with the chief complaint of Right thumb laceration at work, described as moderate, Quality is described as dull and constant, and is localized to the right and upper extremity. Patient reports no radiation. Patient started experiencing this minute(s) and it has been constant. No relieving factors improve symptom(s), No exacerbating factors reported . Patient did receive the following treatments prior to arrival, other (Pressure dressing placed at the scene.) Related Data Home Medications Medication Instructions Recorded Confirmed blood-glucose meter #1 unit 04/11/17 11/02/19 blood sugar diagnostic (Blood #100 strips 02/12/19 11/02/19 Glucose Test strips) lancets 28 gauge #100 ea 02/12/19 11/02/19 levofloxacin 750 mg tablet 750 mg PO DAILY #10 tabs 08/05/21 08/05/21 cyclobenzaprine 10 mg tablet 10 mg PO TID PRN muscle spasm #10 09/28/21 tabs Previous Rx's Medication Instructions Recorded blood-glucose meter #1 unit 04/11/17 blood sugar diagnostic (Blood #100 strips 02/12/19 Glucose Test strips) lancets 28 gauge #100 ea 02/12/19 levofloxacin 750 mg tablet 750 mg PO DAILY #10 tabs 08/05/21 cyclobenzaprine 10 mg tablet 10 mg PO TID PRN muscle spasm #10 09/28/21 tabs Allergies Allergy/AdvReac Type Severity Reaction Status Date / Time No Known Allergies Allergy Verified 09/28/21 13:44 General Stated Complaint: Laceration CELINE: 4 Review of Systems Narrative: Tetanus up-to-date, no other complaints or any PFSH All Active Problems (Updated 01/14/22 @ 14:46 by Chance Rodríguez MD) Laceration of right thumb (Acute) Mediastinal mass (Acute) [place] [place] Multiple lung nodules on CT (Acute) 08/11/21[place] [place] Open fracture of toe of left foot (Acute) Obesity (Chronic) Primary localized osteoarthritis of knee (Chronic) Type 2 diabetes mellitus (Chronic) Social anxiety disorder (Chronic) 04/2018 Psychiatry consult (Dr. Cage) Binge eating disorder (Chronic) 04/2018 Psychiatry consult (Dr. 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 Essential hypertension Hyperlipidemia Myocardial infarction Grandmother , ??DM complications at age 75. 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 Pleasant, well groomed, interactive. HEAD: Normocephalic, atraumatic ENT: Mucous membranes moist, oropharynx unremarkable, External ear exam unremarkable EYES: PERRL, EOMI EXT: Full ROM, vertically oriented linear laceration on the volar surface of the thumb distally. It measures approximately 2 cm and just traverses the depth of the dermis. Distal sensation and motor function intact Neuro: Grossly normal neurologic exam, conversant, interactive. Psych: Speech fluent, thoughts congruent, affect normal Course Vital Signs Vital signs: Vital Signs Temperature 36.6 C 01/14/22 14:26 Pulse 78 01/14/22 14:26 Respiratory Rate 18 01/14/22 14:26 Blood Pressure 118/67 01/14/22 14:26 Pulse Oximetry 98 01/14/22 14:26 Temperature 36.6 C 01/14/22 14:26 Temperature Source Temporal Artery Scan 01/14/22 14:26 Pulse 78 01/14/22 14:26 Respiratory Rate 18 01/14/22 14:26 Respiratory Effort Non-Labored 01/14/22 14:31 Blood Pressure 118/67 01/14/22 14:26 Blood Pressure Position Sitting 01/14/22 14:26 Pulse Oximetry 98 01/14/22 14:26 Oxygen Delivery Method Room Air 01/14/22 14:26 Oxygen Flow Rate 0 01/14/22 14:26
== END 2022-01-14 15:09 | disposition home or self-care (01) ==
PROVIDERS: Emergency Provider Emergency Medicine; PCP Nurse Practitioner Family
DX: S61.011A Laceration without foreign body of right thumb without damage to nail, initial encounter (principal); X58.XXXA Exposure to other specified factors, initial encounter; Y99.0 Civilian activity done for income or pay; Z87.891 Personal history of nicotine dependence
CPT/HCPCS: 99281; 99282

== ENCOUNTER 2022-11-07 07:44 | Emergency (ER) | payer MEDICAID, SELFPAY ==
[2022-11-07 07:53] VITALS: BP 107/57; PULSE 61; RESP 16; TEMP 36.7; O2SAT 100
--- NOTE | 2022-11-07 09:48 | W.ED.GENAD ---
Discharge Plan Disposition Patient Disposition: Home Discharge Details Clinical Impression: Eczema Primary Care Provider: Florina Ivy ED Provider: Andi Jin Home Meds and New Rx's Prescriptions: New triamcinolone acetonide 0.5 % cream 1 applic topical BID PRN (Reason: itching) Qty: 15 1RF Continued (DME) blood-glucose meter 1 EACH misc 1 ea Miscellaneous DAILY Qty: 1 0RF Rx Instructions: Dx: E11.9 to maintain HbA1c less than 7%. No insulin. Please dispense brand covered by insurance. (DME) Blood Glucose Test Strip 1 ea Miscellaneous DAILY Qty: 100 3RF Rx Instructions: Dx: E11.9 to maintain HbA1c less than 7%. No insulin. PLEASE DISPENSE BRAND COVERED BY INSURANCE (DME) lancets 28 gauge misc 1 ea Miscellaneous DAILY Qty: 100 3RF Rx Instructions: Dx: E11.9 to maintain HbA1c less than 7%. No insulin. PLEASE DISPENSE BRAND COVERED BY INSURANCE Discontinued levofloxacin 750 mg tablet 750 mg PO DAILY Qty: 10 0RF Rx Instructions: rx complete cyclobenzaprine 10 mg tablet 10 mg PO TID PRN (Reason: muscle spasm) Qty: 10 0RF Rx Instructions: Do not operate heavy machinery while taking this medication as it may make you sleepy. Only take as needed. Discharge Instructions Instructions: Eczema (ED) Additional Instructions: As discussed please switch to hypoallergenic products for any soaps lotions or laundry detergent to see if this helps with your symptoms. It is also recommended due to potential work exposure that you shower immediately after returning home from work to see if this helps as well. Please use the provided steroid cream as directed and return to the emergency department for new or significant worsening of symptoms otherwise follow-up your primary care provider for recheck of symptoms in the next 1 to 2 weeks. Referrals: Florina Ivy NP [Primary Care Provider] - 1 week Discharge Data Discharge Date/Time-TO BE ENTERED AT DEPARTURE: 11/07/22 10:03 Medical Decision Making Patient presenting to the emergency department for chief complaint of rash. Patient states that he has had rash mainly on hands for the past 15 months since he started his new job. Over the last couple weeks though he has noted worsening rash on his upper arms and abdomen similar to the one on his wrist. Patient denies all other symptoms. Physical exam shows eczema type rash to the dorsal aspect of the bilateral hands, upper arms, and abdomen. No petechial involvement, noncellulitic, no ulcerations pustules or vesicles noted. I do believe this is a eczema type rash with potential component of being due to work exposure. Patient educated on home treatments that he could use but we will put him on steroid cream for his rash. After discussion of diagnosis and plan of care patient has no further needs, questions, or concerns and states clear understanding to return to the emergency department for any worsening symptoms. This documentation was generated using I Do Now I Don'tation system, please disregard any oddities of phrase or misspellings. HPI General Mode of arrival: ambulatory. Date/Time Provider Initiated Documentation: 11/07/22 09:37. Limitations to Documentation: no limitations. Information obtained by: patient and RN notes reviewed. History of Present Illness 47 year old M presents to the emergency department with the chief complaint of Rash, described as moderate and similar to prior episodes, Quality is described as other (Itching), and is localized to the chest, abdomen and upper extremity. Patient started experiencing this month(s) (15) and it has been constant. No relieving factors improve symptom(s), Other factors that worsen symptoms (Fiberglass exposure) . Patient notes no other symptoms.. Patient did receive the following treatments prior to arrival, other ([id number] lotions) Related Data Home Medications Medication Instructions Recorded Confirmed blood-glucose meter #1 unit 04/11/17 11/02/19 blood sugar diagnostic (Blood #100 strips 02/12/19 11/02/19 Glucose Test strips) lancets 28 gauge #100 ea 02/12/19 11/02/19 triamcinolone acetonide 0.5 % 1 applic topical BID PRN itching 11/07/22 topical cream #15 grams Previous Rx's Medication Instructions Recorded blood-glucose meter #1 unit 04/11/17 blood sugar diagnostic (Blood #100 strips 02/12/19 Glucose Test strips) lancets 28 gauge #100 ea 02/12/19 triamcinolone acetonide 0.5 % 1 applic topical BID PRN itching 11/07/22 topical cream #15 grams Allergies Allergy/AdvReac Type Severity Reaction Status Date / Time No Known Allergies Allergy Verified 09/28/21 13:44 General Stated Complaint: RashLesion CELINE: 3 Review of Systems Constitutional Constitutional: Denies fever(s) ENT Ears, Nose, Mouth, and Throat: Denies lip swelling, Denies nasal congestion, Denies sore throat and Denies tongue swelling Cardiovascular Cardiovascular: Denies chest pain Respiratory Respiratory: Denies wheezing Integumentary/Breasts Skin/Breast: Reports as per HPI, Reports pruritus and Reports erythema Allergic/Immunologic Allergic/Immunologic: Denies lip swelling, Denies tongue swelling and Denies wheezing [facility] All Active Problems (Updated 11/07/22 @ 09:53 by Andi Jin NP) Eczema (Acute) Mediastinal mass (Acute) 08/11/21-[facility] [place] [facility] Multiple lung nodules on CT (Acute) 08/11/21-[facility] [place] [facility] Open fracture of toe of left foot (Acute) Obesity (Chronic) Primary localized osteoarthritis of knee (Chronic) Type 2 diabetes mellitus (Chronic) Social anxiety disorder (Chronic) 04/2018 Psychiatry consult (Dr. Cage) Binge eating disorder (Chronic) 04/2018 Psychiatry consult (Dr. 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 Essential hypertension Hyperlipidemia Myocardial infarction Grandmother , ??DM complications at age 75. 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 Sexually active: No Current gender identity: male What type of physical activity do you participate in: walking Duration: 45-60 minutes/day Frequency: daily Seatbelt use: sometimes Helmet use: Yes Water heater temp set <120 deg: Yes Working smoke detector in home: Yes Fire extinguisher in home: Yes Carbon monox detector in home: Yes Firearms in home: Yes Firearms unloaded and locked: Yes Do you feel safe at home: Yes Do you feel safe in your relationship?: Yes Exam Const General: cooperative, no acute distress and not ill appearing Orientation: alert, awake and oriented x3 HENMT Mouth: moist mucous membranes Resp Effort & Inspection: normal respiratory effort, able to speak in complete sentences and no respiratory distress Auscultation: clear to auscultation bilaterally Cardio Rate: regular rate Rhythm: regular rhythm Heart Sounds: S1 normal and S2 normal Skin Rashes: rashes noted plaques diffuse anterior multiple locations and other Neuro General: patient alert, patient awake, patient oriented x3, moves all extremities and no focal motor deficits Sensory Exam: no sensory deficits noted Course Vital Signs Vital signs: Vital Signs Temperature 36.7 C 11/07/22 07:53 Pulse 61 11/07/22 07:53 Respiratory Rate 16 11/07/22 07:53 Blood Pressure 107/57 L 11/07/22 07:53 Pulse Oximetry 100 11/07/22 07:53 Temperature 36.7 C 11/07/22 07:53 Pulse 61 11/07/22 07:53 Respiratory Rate 16 11/07/22 07:53 Blood Pressure 107/57 L 11/07/22 07:53 Pulse Oximetry 100 11/07/22 07:53
--- NOTE | 2022-11-07 10:54 | NUR.NOTE ---
Referral made for rash in 1-2 weeks per Darci Jin with PCP. Put the referral in the career discovery teacher's box for follow up assistance.Nursing Note:
== END 2022-11-07 10:03 | disposition home or self-care (01) ==
PROVIDERS: Emergency Provider Nurse Practitioner Family; PCP Nurse Practitioner Family
DX: L30.8 Other specified dermatitis (principal)
CPT/HCPCS: 99283; 99284

== ENCOUNTER 2023-03-06 09:07 | Emergency (ER) | payer MEDICAID, SELFPAY ==
[2023-03-06 09:12] VITALS: BP 130/80; PULSE 64; RESP 18; TEMP 37.1; O2SAT 98
--- NOTE | 2023-03-06 09:17 | W.ED.GENAD ---
Discharge Plan Disposition Patient Disposition: Home Condition: Stable Discharge Details Clinical Impression: Eczema Primary Care Provider: Florina Ivy ED Provider: Adelfo Arias Home Meds and New Rx's Prescriptions: New prednisone 20 mg tablet See Rx Instructions .ROUTE .COMPLEX Qty: 30 0RF Rx Instructions: Take 3 tablets by mouth once per day for 5 days, then take 2 tablets by mouth once per day for 5 days, then take 1 tablet by mouth once per day for 5 days Continued triamcinolone acetonide 0.5 % cream 1 applic topical BID PRN (Reason: itching) Qty: 15 1RF (DME) blood-glucose meter 1 EACH misc 1 ea Miscellaneous DAILY Qty: 1 0RF Rx Instructions: Dx: E11.9 to maintain HbA1c less than 7%. No insulin. Please dispense brand covered by insurance. (DME) Blood Glucose Test Strip 1 ea Miscellaneous DAILY Qty: 100 3RF Rx Instructions: Dx: E11.9 to maintain HbA1c less than 7%. No insulin. PLEASE DISPENSE BRAND COVERED BY INSURANCE (DME) lancets 28 gauge misc 1 ea Miscellaneous DAILY Qty: 100 3RF Rx Instructions: Dx: E11.9 to maintain HbA1c less than 7%. No insulin. PLEASE DISPENSE BRAND COVERED BY INSURANCE Discharge Instructions Instructions: Prednisone (By mouth), Eczema (ED) Additional Instructions: You were seen in the emergency department for your significant eczema eruption. I am prescribing you oral steroids sent to [facility] in [place], take these as directed on a 15-day taper. Ultimately you need to be seen by dermatology, please contact your former primary care physician's office to see if they can assign you a new primary care provider, I have also attached other offices to call. Both [place] and [facility] have dermatology and this is ultimately where you need to be seen for definitive management of your eczema. Please apply 1% hydrocortisone [id number] cream as needed but give yourself a break from your prescription strength steroid creams. Please return for any drainage of pus from the areas or significant increase in redness and swelling with fever. Referrals: [facility] [Outside] (Dermatology) [facility] [Outside] (Dermatology) Florina Ivy NP [Primary Care Provider] - Discharge Data Discharge Date/Time-TO BE ENTERED AT DEPARTURE: 03/06/23 10:46 Medical Decision Making This dictation utilizes [id number] dictation software and may contain unedited grammatical errors. 47 y/o M presents to ED today with a chief complaint of spreading rash, previously seen and diagnosed with eczema and provided with triamcinolone topical treatment which has not resolved his symptoms, has no primary care or dermatology provider. Onset and characteristics include brief remission with his topical treatment now having worsening rash to the inverse surfaces of his elbow/armpits and less so to his torso. Patient has relevant history of t2DM. Family and social history: noncontributory. Pertinent exam findings / vital signs include eczematous eruptions of inverse surfaces of elbows/armpits, less so to torso, VSS, no acute distress. Differential / pathologies of concern include eczema, rash, NOT cellulitis/abscess, hidradenitis suppurativa. Diagnostic studies of: -none. Interventions of: -none. ED Course: Acute uncomplicated illness without systemic symptoms, outpatient Rx treatment and outpatient follow-up recommended. Findings not consistent with cellulitis, abscess, hives or allergic reaction, the patient has findings consistent with eczematous eruption. Disposition of Eczema. Assessment/Plan: Counseled the patient on his steroid taper that was sent to his pharmacy as well as advised him to try to reestablish care with [facility] see if they have assigned him a new provider since his provider left the practice. I recommend that he follow-up with dermatology for definitive management. Recommend he start using hydrocortisone 1% OTC and give himself a drug holiday from prescription strength topical steroids. Patient verbalized understanding of the plan and return to ED criteria and engaged in shared decision making. Medical Records Medical records reviewed: Yes I reviewed the patient's medical records. HPI General Date/Time Provider Initiated Documentation: 03/06/23 09:17. HPI Narrative: 47 year-old male presents to ED today by POV/ambulating with his spouse with a chief complaint of spreading rash on his arms, armpits, torso- seen here last week for eczematous eruption with onset noted for the past 5-6 days. Quality described as painful, raw and itchy skin, no radiation to large swellings, drainage of pus from the rashes, denies silvery plaque appearance, denies fever/nausea/vomiting, denies new chemical exposures- recently started heating the house for winter. Severity is described as 7-8/10. Palliating factors include triamcinolone cream at prior visit was helping, but he has run out. Provoking factors include nothing specific. Events leading up to the incident/Associated Symptoms: Patients' PCP was at [facility], but he has not followed up with them to get a new PCP after their left the practice. Patient not anticoagulated. Related Data Home Medications Medication Instructions Recorded Confirmed blood-glucose meter #1 unit 04/11/17 11/11/22 blood sugar diagnostic (Blood #100 strips 02/12/19 11/11/22 Glucose Test strips) lancets 28 gauge #100 ea 02/12/19 11/11/22 triamcinolone acetonide 0.5 % 1 applic topical BID PRN itching 11/11/22 11/11/22 topical cream #15 grams prednisone 20 mg tablet See Rx Instructions .Route 03/06/23 .COMPLEX #30 tabs Previous Rx's Medication Instructions Recorded blood-glucose meter #1 unit 04/11/17 blood sugar diagnostic (Blood #100 strips 02/12/19 Glucose Test strips) lancets 28 gauge #100 ea 02/12/19 triamcinolone acetonide 0.5 % 1 applic topical BID PRN itching 11/11/22 topical cream #15 grams prednisone 20 mg tablet See Rx Instructions .Route 03/06/23 .COMPLEX #30 tabs Allergies Allergy/AdvReac Type Severity Reaction Status Date / Time No Known Allergies Allergy Verified 03/06/23 09:15 General Stated Complaint: RashLesion CELINE: 4 Review of Systems All systems reviewed & are unremarkable except as noted in HPI and below PFSH All Active Problems (Updated 03/06/23 @ 09:45 by MEDARDO Valadez) Eczema (Acute) History of type 2 diabetes mellitus (Acute) Mediastinal mass (Acute) 08/11/21-[facility] pulmonology Multiple lung nodules on CT (Acute) 08/11/21-[facility] pulmonology Obesity (Chronic) Primary localized osteoarthritis of knee (Chronic) Social anxiety disorder (Chronic) 04/2018 Psychiatry consult (Dr. Cage) Binge eating disorder (Chronic) 04/2018 Psychiatry consult (Dr. Cage) Vitamin D deficiency (Chronic 10/23/15) Severe obstructive sleep apnea (Chronic 11/03/15) Sleep study 10/10/15 [facility]; BiPAP Other chronic pain (Chronic) Primarily L knee, though has diffuse aches & pains which correlate with wt gain Hyperlipidemia (Chronic 04/11/17) 03/2017 labwork: 10-year ASCVD risk = ~5.9%, however, DM dx, so started on moderate intensity statin therapy Hearing loss (Chronic) Medical History Bigeminal rhythm (01/06/16) seen on f/u Sleep Study, ? 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 Essential hypertension Hyperlipidemia Myocardial infarction Grandmother , ??DM complications at age 75. 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 SKIN: Warm, pink, dry, intact, scaly papular macular rash with excoriation to the bilateral forearms worse on inverse surfaces, spreading to armpits and torso more scantly, consistent with eczematous eruption without purulent drainage, no silvery plaques of psoriasis. HEAD: Normocephalic, atraumatic, normal hair distribution for gender/age. EYES: Pupils PERRLA, EOMs intact without nystagmus, normal conjunctiva, no exudates on lids/lashes. ENT: Nares patent, no circumoral cyanosis, no facial swelling NECK: Supple, trachea midline, painless cervical ROM. LUNGS/CHEST: Non-labored respirations, normal A/P diameter, symmetrical expansion, no chest wall deformity HEART (CV/PV): No peripheral edema, no JVD. ABDOMEN: Soft, non-distended, no guarding. MSK: Normal ROM, no swelling/deformity to bilateral UEs or LEs, moving all extremities without weakness, no cyanosis, spine midline without tenderness, normal curvature. NEURO: Mental Status AAOx4 - alert to person, place, time, events No facial droop, no forehead involvement. Motor: No focal weakness - strength 5/5 in bilateral UEs and LEs, proximal and distal, symmetric. Sensory: sensation intact to light touch globally. Gait normal: patient ambulated without ataxia into ED room. PSYCH: euthymic, cooperative, pleasant, appropriate speech Course Vital Signs Vital signs: Vital Signs Temperature 37.1 C 03/06/23 09:12 Pulse 64 03/06/23 09:12 Respiratory Rate 18 03/06/23 09:12 Blood Pressure 130/80 03/06/23 09:12 Pulse Oximetry 98 03/06/23 09:12 Temperature 37.1 C 03/06/23 09:12 Temperature Source Temporal Artery Scan 03/06/23 09:12 Pulse 64 03/06/23 09:12 Respiratory Rate 18 03/06/23 09:12 Respiratory Effort Normal, Non-Labored 03/06/23 09:15 Blood Pressure 130/80 03/06/23 09:12 Blood Pressure Position Sitting 03/06/23 09:12 Pulse Oximetry 98 03/06/23 09:12 Oxygen Delivery Method Room Air 03/06/23 09:12 Oxygen Flow Rate 0 03/06/23 09:12
== END 2023-03-06 10:46 | disposition home or self-care (01) ==
LOC: ER 10:05
PROVIDERS: Emergency Provider Physician Assistant; PCP Nurse Practitioner Family
DX: L30.9 Dermatitis, unspecified (principal)
CPT/HCPCS: 99282; 99283

== ENCOUNTER 2024-07-24 13:59 | Outpatient (REF) | payer BC, SELFPAY ==
[2024-07-24 16:38] LABS: ALT 32 U/L (16-63); AST 32 U/L (15-37); Albumin 3.9 g/dL (3.4-5.0); Alkaline Phosphatase 56 U/L (46-116); BUN 17 mg/dL (7-18); Bilirubin, Total 1.3 mg/dL (0.2-1.0); CREATININE 0.9 mg/dL (0.70-1.30); Calcium 9.2 mg/dL (8.5-10.1); Chloride 105 mmol/L (98-107); Estimated GFR 104.05 (mL/min/1.73m2); Glucose 102 mg/dL (74-106); Potassium 4.4 mmol/L (3.5-5.1); Sodium 140 mmol/L (136-145); Total Protein 6.9 g/dL (6.4-8.2)
== END 2024-07-24 14:00 | disposition home or self-care (01) ==
LOC: LBN 13:59
PROVIDERS: PCP Nurse Practitioner Family; Visit Provider Nurse Practitioner Family
DX: U07.1 COVID-19 (principal)
CPT/HCPCS: 80053